=== PATIENT | male | born 1950 | race Caucasian/White ===

== ENCOUNTER → 2018-12-28 | Day surgery (SDC) | payer MEDICARE ==
[~2018-12-28] MED LIST: Lactated Ringers 1,000 ML IV SCH; Propofol 200 MG/20 ML SDV IV ONE
--- NOTE | 2018-12-28 13:15 | OR ---
DATE OF OPERATION: 12/28/2018 PREOPERATIVE DIAGNOSIS: HEMATOCHEZIA. POSTOPERATIVE DIAGNOSIS: 1. TUBULAR ADENOMAS X4. 2. PROMINENT INTERNAL HEMORRHOIDS. SURGEON: Florentin Phillips MD PROCEDURE: DIAGNOSTIC COLONOSCOPY WITH SNARE POLYPECTOMY X4. 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 COMPLICATIONS: None. SPECIMEN: Tubular adenomas x4, all 0.5 cm or less. FINDINGS: 1. Full-length colonoscopy. 2. Gordon diverticulosis, mild to moderate. 3. Tubular adenomas x4. RECOMMENDATIONS: Followup colonoscopy in 3 years. INDICATIONS: The patient has been having some on and off hematochezia for over 2 years. He was told in the past he had internal hemorrhoids. He has never had a colonoscopy. Hari Epperson sent him for diagnostic testing. DESCRIPTION OF PROCEDURE: The patient was prepped and draped, placed in the left lateral decubitus position. A lubricated Olympus colonoscope was inserted and easily advanced to the cecum. Direct visualization of the ileocecal valve and appendiceal orifice was accomplished. The bowel prep was adequate. Upon withdrawal of the scope, the patient suffered from gordon diverticular disease present all the way over to the cecal pouch. Mild in the right colon, mild to moderate in the sigmoid. No acute inflammatory changes were seen throughout the ascending, transverse, and descending colons. No other polyps, mass, ulceration, or bleeding sites. No vascular abnormalities or signs of colitis. In the mid to distal sigmoid, the patient had 2 small tubular adenomas, both removed with snare and suctioned into polyp traps 1 and 2 respectively. In the rectosigmoid junction, the patient had a 3rd smaller flat adenoma removed with a snare and suctioned into polyp trap 3. In the proximal rectal vault, the patient had a 4th and larger tubular adenoma, possibly 5 to 6 cm in size removed with a snare and suctioned into polyp trap 4 without problem. The rest of the rectal vault was benign. Retroflexion of scope in the rectum showed significant perianal hemorrhoid disease, otherwise benign. Air was suctioned, scope removed without complication. RY/MINOR /[id number]
== END ==
LOC: CC.SDS 08:39
PROVIDERS: ATTEND Family Medicine
DX: D12.5 Benign neoplasm of sigmoid colon (principal); D12.8 Benign neoplasm of rectum; K63.5 Polyp of colon; K57.30 Diverticulosis of large intestine without perforation or abscess without bleeding; K64.8 Other hemorrhoids; I21.9 Acute myocardial infarction, unspecified; F17.210 Nicotine dependence, cigarettes, uncomplicated
CPT/HCPCS: 45385; J2704; J7120